=== PATIENT | male | born 1950 | race Caucasian/White ===

== ENCOUNTER → 2021-12-15 | Outpatient (CLI) | payer MEDICARE ==
[~2021-12-15] MED LIST: ANTIVERT 25MG T25 MG PO; ASPIRIN EC81 MG PO; ATORVASTATIN CA20 MG PO; BRILINTA 90 MG90 MG PO; CELEXA10 MG PO; CINNAMON500 MG PO; CYMBALTA60 MG PO; DIABETA 5 MG TAB5 MG PO; GLUCOPHAGE1000 MG PO; GLYBURIDE5 MG PO; HYDROCODON-ACE1 EAC6 PO; INVOKANA 100 M100 MG PO; JANUVIA100 MG PO; JARDIANCE10 MG PO; LOPRESSOR 25 MG25 MG PO; NORVASC10 MG PO; ROBAXIN500 MG PO; SINGULAIR10 MG PO; TEKTURNA150 MG PO; THERAGRAN M TAB1 EA PO; TOPROL XL 25 MG25 MG PO; ZETIA10 MG PO
== END ==
LOC: RAD 15:50
DX: R10.9 Unspecified abdominal pain (principal); W19.XXXA Unspecified fall, initial encounter
CPT/HCPCS: 71100; 72100; 73502